=== PATIENT | female | born 1980 | race Two or more races ===

== ENCOUNTER 2024-02-21 12:15 | Emergency (ER) | payer MEDICAID, SELFPAY ==
[2024-02-21 12:16] VITALS: BMI 42.0
[2024-02-21 12:23] VITALS: BP 150/88; PULSE 97; RESP 19; TEMP 36.6; O2SAT 99
[2024-02-21] MEDS: KETOROLAC INJ 30 MG/ML VIAL IM (12:58)
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
== END 2024-02-21 14:13 | disposition home or self-care (01) ==
PROVIDERS: Emergency Provider Emergency Medicine; PCP Family Medicine
DX: S29.9XXA Unspecified injury of thorax, initial encounter (principal); M62.830 Muscle spasm of back; V89.9XXA Person injured in unspecified vehicle accident, initial encounter
CPT/HCPCS: 96372; 99283; J1885

== ENCOUNTER 2024-09-28 19:54 | Emergency (ER) | payer MEDICAID, SELFPAY ==
[2024-09-28 19:57] VITALS: BMI 39.6
--- NOTE | 2024-09-28 20:15 | EDNOTE_ITS ---
ED Skin Abcess FB-RME/HPI General Chief complaint: General Adult/Misc Complain Stated complaint: PAINFUL LUMP TO R BREAST Time Seen by Provider: 09/28/24 20:15 Arrival date/time: 09/28/24 19:54 RME / HPI RME / HPI narrative: This section includes all my notes and documentations, including HPI, PE, and ED course. Young Negron MD HPI: 44yo female with a couple week history of possible lump in the right breast. Pain on and off. No other complaints. ROS: All negative except as documented in HPI. Physical Exam: General: Alert and oriented. No acute distress when remaining still. Eyes: Conjunctivae and lids clear. ENT: No nasal congestion. Neck: Supple. 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 Pea-sized lump palpable in the right breast superior to the nipple. Lungs: No respiratory distress. Skin: Warm and dry. Neuro: Alert and oriented X 3. I reviewed all diagnostic test results. My review of the right breast ultrasound report is 2 cm mass. At this point, diagnoses include lump of right breast. Recommended more outpatient workup. Based on my best medical judgment, made decision no further evaluation or treatment indicated at this time. Patient understands and agrees to the discharge instructions customized and printed, see below. Discharge Instructions from Dr. Negorn printed for you: 1. The ultrasound shows a marble sized lump in your right breast. The cause is not known. 2. Radiologist recommended repeat ultrasound in 3 months. 3. If you want more workup earlier, see a private doctor this week. And ask for help with referrals to see specialists for biopsy. Without biopsy, you will not know the exact cause of the lump. 4. Seek immediate medical care with worsening or with any concerns. Young Negron MD Related Data Previous Rx's ?Medication ?Instructions ?Recorded lorazepam 1 mg tablet (Ativan) 1 mg PO BID PRN agitati on #15 tabs 07/05/21 acetaminophen 500 mg capsule 500 mg PO QID PRN fever o r pain 07/12/22 #30 caps ibuprofen 800 mg tablet 800 mg PO TID PRN pain #30 t abs 07/12/22 ibuprofen 800 mg tablet 800 mg PO TID PRN pain #30 t abs 02/21/24 Allergies Allergy/AdvReac Type Severity Reaction Status Date / Time No Known Allergies Allergy Verified 09/28/24 20:03 Review of Systems Review of Systems Systems Reviewed: All systems reviewed, normal except as documented Past Medical History Past Medical History CARDIAC: Negative Congestive Heart Failure RESPIRATORY: Negative Chronic Obstructive Pulmonary Disease (COPD) GENITOURINARY: Negative Renal Disease ENDOCRINE: Negative Diabetes Mellitus Type 1 or Diabetes Mellitus Type 2 Social History SMOKING STATUS: Former smoker ED Exam Narrative Physical exam: As noted in HPI. Course Quality Measures none Orders Category Date Time Status US breast BI complete Stat Exams 09/28/24 20:15 Completed Vital Signs Vital signs: Vital Signs Temperature 98.9 F 09/28/24 20:26 Pulse Rate 97 09/28/24 20:26 Respiratory Rate 20 09/28/24 20:26 Blood Pressure 154/98 H 09/28/24 20:26 Pulse Oximetry (%) 98 09/28/24 20:26 Oxygen Delivery Method Room Air 09/28/24 20:26 Skin / Abscess / Foreign Body MDM Narrative MDM Narrative:: Scribe Attestation: 09/28/24 - Yadira Mohr am scribing for and in the presence of Dr. Negron. 44yo female with a couple week history of possible lump in the right breast. Pain on and off. No other complaints. Patient data External records reviewed:: [facility] previous records (Per chart review, patient has no relevant previous ED visits.) Clinical information provided by:: patient Social determinants that could affect healthcare access:: none Patient has the following chronic illnesses:: none How is presenting disease/condition affected by chronic disease/condition?: no chronic disease Evaluation data The following diagnostics were reviewed and interpreted by me:: radiology exam(s) Lab and/or radiology exams considered but not ordered:: none Interpretation Summary: I reviewed all diagnostic test results. My review of the right breast ultrasound report is 2 cm mass. Medications / Prescriptions Medications or Prescriptions considered but not ordered:: none Medication administrations:: none Consultations Consultation(s) initiated? (list below): No Diagnosis Skin/Abscess Differential Diagnosis: abscess of skin or subcutaneous tissue, cellulitis, insect bites, contact dermatitis and other (Breast tumor) Most likely diagnosis given after review of the tests above:: Lump of right breast of unclear etiology Admission Indicated Admission indicated?: not indicated Explain why admission is indicated or not indicated:: With no condition needing emergent intervention, there was no indication for admission. Admission Request Was there a request for admission?: No Disposition Plan Disposition Plan: Discharge Discharge Attestation Discharge Attestation: The patient and all family members were given an opportunity to ask questions and understood the discharge instructions. Discharge instructions specifically effects, indications for sooner follow up or return to the emergency department, and the expected course of current diagnosis. Patient condition: Stable Discharge Plan Plan Patient Disposition: HOME (Self Care) Prescriptions/Referrals Prescriptions/Med Rec: No Action lorazepam [Ativan] 1 mg tablet 1 mg PO BID PRN (Reason: agitation) Qty: 15 0RF ibuprofen 800 mg tablet 800 mg PO TID PRN (Reason: pain) Qty: 30 0RF ibuprofen 800 mg tablet 800 mg PO TID PRN (Reason: pain) Qty: 30 0RF acetaminophen 500 mg capsule 500 mg PO QID PRN (Reason: fever or pain) Qty: 30 0RF Referrals: No Primary/Family,Physician [Primary Care Provider] - In 1 week Problem List Clinical Impression: Lump of right breast Patient/Caregiver Discharge Instructions Discharge Activity: activity as tolerated Education Materials: ED Breast Lump, Uncertain Cause Additional Instructions: Discharge Instructions from Dr. Negron printed for you: 1. The ultrasound shows a marble sized lump in your right breast. The cause is not known. 2. Radiologist recommended repeat ultrasound in 3 months. 3. If you want more workup earlier, see a private doctor this week. And ask for help with referrals to see specialists for biopsy. Without biopsy, you will not know the exact cause of the lump. 4. Seek immediate medical care with worsening or with any concerns. Print Language: South Korean Stand Alone Forms: Elise Award Info., Patient Portal Info Letter
--- NOTE | 2024-09-28 20:15 | XR_ITS ---
Examination: Breast ultrasound complete, bilateral Date and time of exam: September 28, 2024, 2046 hours INDICATIONS: Palpable right breast lump 3 weeks Technique: Real-time grayscale ultrasonographic imaging bilateral breasts, including all 4 quadrants as well as nipple retroareolar and axillary regions. Findings: Sonographic images right breast 2:00 mass 16 x 10 x 22 mm which may represent a hematoma. Sonographic images left breast No cystic or solid mass IMPRESSION: Findings suspicious for 2:00 hematoma right breast as above, follow-up recommended in 3 months to document clearing
[2024-09-28 20:26] VITALS: BP 154/98; PULSE 97; RESP 20; TEMP 37.2; O2SAT 98
== END 2024-09-28 22:02 | disposition home or self-care (01) ==
PROVIDERS: Emergency Provider Emergency Medicine
DX: N63.12 Unspecified lump in the right breast, upper inner quadrant (principal)
CPT/HCPCS: 76641; 99284